=== PATIENT | male | born 1950 | race Caucasian/White ===

== ENCOUNTER → 2016-04-19 | Outpatient (CLI) | payer OTHER ==
--- NOTE | 2016-04-19 16:47 | DX ---
Right Foot - 4 views Indication: Trauma. Pain. Technique: AP, oblique, lateral and sesamoid views Comparison: None Findings: The bones are anatomically aligned. Mild osteoarthritis of the first metatarsophalangeal edna int as evidenced by eccentric joint space narrowing, subchondral sclerosis and cyst formation, and sm all marginal osteophytes. The foot is otherwise normal. Bilateral sesamoid bones are intact and have normal density. No fracture or evidence of avascular necrosis. Impression: 1. Mild osteoarthritis of the first metatarsophalangeal joint. 2. Normal sesamoid bones.
== END ==
LOC: BMCIMAGING 15:29
PROVIDERS: ATTEND Podiatrist Foot & Ankle Surgery
DX: M79.671 Pain in right foot (principal); M19.071 Primary osteoarthritis, right ankle and foot

== ENCOUNTER → 2018-07-07 | Outpatient (CLI) | payer OTHER | LOC: FIMAGING 07:27 | PROVIDERS: ATTEND Orthopaedic Surgery Hand Surgery | DX: S43.432A Superior glenoid labrum lesion of left shoulder, initial encounter (principal) ==